=== PATIENT | female | born 1990 | race Two or more races ===

== ENCOUNTER → 2020-08-24 | Outpatient (CLI) | payer OTHER | END | disposition home or self-care (01) | LOC: STAR 08:09 | PROVIDERS: ATTEND Obstetrics & Gynecology | DX: Z20.822 Contact with and (suspected) exposure to COVID-19 (principal); O02.1 Missed abortion | CPT/HCPCS: U0003 ==

== ENCOUNTER 2020-08-30 09:05 | Emergency (ER) | payer OTHER ==
[~2020-08-30] VITALS: Ht 160 cm; Wt 68.0 kg
[2020-08-30] MEDS ORDERED: ONDANSETRON 2MG/ML, 2ML ONE (09:45)
[2020-08-30] MEDS ORDERED: MORPHINE SULFATE 4 MG/ML, 1ML ONE ×2 (09:46→10:51)
[2020-08-30] MEDS: MORPHINE SULFATE 4 MG/ML, 1ML IVPush PRN ×2 (09:48→10:56)
[2020-08-30 09:49] LABS: BASOPHILS % (AUTO) 0 % (0-1); EOSINOPHILS % (AUTO) 1 % (1-7); LYMPHOCYTES % (AUTO) 9 % (22-44); MEAN CORPUSCULAR HGB CONC 34.1 g/dL (32.4-35.8); MEAN PLATELET VOLUME 7.9 fL (7.4-10.4); MONOCYTES % (AUTO) 6 % (2-9); NEUTROPHILS % (AUTO) 85 % (42-75); PLATELET COUNT 186 x10^3/uL (130-400); RED BLOOD COUNT 4.26 x10^6/uL (3.82-5.3); RED CELL DISTRIBUTION WIDTH 13.4 % (9.6-15.2)
[2020-08-30 09:50] LABS: MD NO
--- NOTE | 2020-08-30 09:53 | NUR ---
PT C/O ABD CRAMPING AND NAUSEA. PT WAS SCHEDULED FOR A D&C YESTERDAY, BUT HAD CANCELLED SHE WAS HAVING CRAMPING AND PASSING TISSUE. PT HAS STOPPED PASSING TISSUE, BUT IS STILL BLEEDING AND CRAMPING. PT STATES PAIN IS 10/10 WHEN CRAMPING IS OCCURING. PT WAS APPROX. 8 WEEKS WITH HER FIRST . PT MEDICATED PER AUG. BED RAILS UP.
[2020-08-30 10:00] LABS: ANION GAP 7 mmol/L (5-15); CALCIUM 8.7 mg/dL (8.5-10.1); CHLORIDE 105 mmol/L (98-107); CREATININE 0.49 mg/dL (0.55-1.02)
[2020-08-30] MEDS ORDERED: ONDANSETRON 2MG/ML, 2ML IVPush ONE (10:00)
[2020-08-30] MEDS ORDERED: SODIUM CHLORIDE 0.9% 1,000ML IVBOLUS ONE (10:00)
[2020-08-30 10:57] VITALS: BP 95/69
--- NOTE | 2020-08-30 11:30 | NUR ---
PT AND SPOUSE REC'VD DISCHARGE INSTRUCTIONS AND EDUCATION. PT AND SPOUSE HAD NO FURTHER QUESTIONS. SPOUSE TO DRIVE PT TO [employer] OFFICE FOR FOLLOW UP. PT AND SPOUSE AMBULATED TO ME AREA, STEADY GAIT.
== END 2020-08-30 11:42 | disposition home or self-care (01) ==
LOC: ED 11:16
DX: O36.4XX0 Maternal care for intrauterine death, not applicable or unspecified (principal); R10.2 Pelvic and perineal pain; R11.2 Nausea with vomiting, unspecified; R10.9 Unspecified abdominal pain; F17.210 Nicotine dependence, cigarettes, uncomplicated; Z3A.01 Less than 8 weeks gestation of pregnancy
CPT/HCPCS: 36415; 76801; 80048; 82040; 84702; 85025; 86901; 96361; 96374; 96375; 96376; 99284; J2270; J2405; J7030

== ENCOUNTER 2020-08-30 12:42 | Day surgery (SDC) | payer OTHER ==
[~2020-08-30] VITALS: Ht 160 cm; Wt 67.8 kg
[2020-08-30] MEDS ORDERED: FENTANYL PF 100 MCG/2ML IVPush ONE (13:30)
[2020-08-30] MEDS ORDERED: CHLORHEXIDINE 15 ML UDC MM ONE (13:30)
[2020-08-30] MEDS ORDERED: LACTATED RINGERS 1,000 ML IV SCH (13:30)
[2020-08-30 13:49] VITALS: BP 102/68
[2020-08-30] MEDS ORDERED: FENTANYL PF 100 MCG/2ML IV ONE (15:00)
[2020-08-30] MEDS ORDERED: FENTANYL PF 100 MCG/2ML IV PRN (15:30)
[2020-08-30] MEDS: HYDROmorphone 2 MG/ML, 1ML IVPush PRN ×2 (15:38→15:47)
[2020-08-30] MEDS ORDERED: METHYLERGONOVINE 0.2 MG/ML IM ONE (15:59)
[2020-08-30] MEDS ORDERED: SILVER NITRATE STICK TP ONE (15:59)
[2020-08-30] MEDS ORDERED: MISOPROSTOL 200 MCG TABLET ONE (15:59)
[2020-08-30] MEDS ORDERED: OXYTOCIN 10 UNITS/ML, 1ML ONE (15:59)
[2020-08-30] MEDS ORDERED: FENTANYL PF 250 MCG/5ML ONE (16:00)
[2020-08-30] MEDS ORDERED: MIDAZOLAM 1 MG/ML, 2ML ONE (16:00)
[2020-08-30] MEDS ORDERED: ROCURONIUM 10MG/ML,5ML ONE (16:02)
[2020-08-30] MEDS ORDERED: DEXAMETHASONE 4 MG/ML, 1ML ONE (16:27)
[2020-08-30] MEDS ORDERED: PROPOFOL 10 MG/ML, 20ML ONE (16:34)
[2020-08-30] MEDS ORDERED: SUCCINYLCHOLINE 20 MG/ML, 10ML ONE (16:34)
[2020-08-30] MEDS ORDERED: ONDANSETRON 2MG/ML, 2ML ONE (16:34)
[2020-08-30] MEDS ORDERED: NALOXONE 0.4 MG/ML, 1ML ONE (16:35)
[2020-08-30] MEDS ORDERED: OXYcodone 5 MG/5 ML ORAL.SOL UDC ONE (18:03)
[2020-08-30] MEDS ORDERED: FENTANYL PF 100 MCG/2ML ONE (18:03)
[2020-08-30] MEDS ORDERED: PROMETHAZINE 25 MG/ML, 1ML ONE (18:14)
[2020-08-30] MEDS ORDERED: PROMETHAZINE 25 MG/ML, 1ML IVPush PRN (18:30)
[2020-08-30] MEDS ORDERED: OXYcodone 5 MG/5 ML ORAL.SOL UDC PO PRN (18:30)
== END 2020-08-30 19:15 | disposition home or self-care (01) ==
LOC: OUT 12:42
PROVIDERS: ATTEND Obstetrics & Gynecology
DX: O02.1 Missed abortion (principal)
CPT/HCPCS: 36415; 59820; 86850; 86900; 88305; J0330; J1100; J1170; J2210; J2250; J2310; J2405; J2550; J2704; J3010; J7120; J2590